=== PATIENT | male | born 1980 | race Hispanic/Latino ===

== ENCOUNTER 2021-06-08 12:31 | Outpatient (CLI) | payer OTHER | END 2021-06-08 12:32 | disposition home or self-care (01) | LOC: NAV RAD 12:31 | PROVIDERS: ATTEND Nurse Practitioner Family | DX: U07.1 COVID-19 (principal); J12.82 Pneumonia due to coronavirus disease 2019 | CPT/HCPCS: 71046 ==

== ENCOUNTER 2021-06-09 02:14 | Emergency (ER) | payer OTHER, SELFPAY ==
[2021-06-09] MEDS ORDERED: Aspirin Chewable 81 MG TAB ONE (02:45)
[2021-06-09] MEDS ORDERED: cefTRIAXone\\ROCEPHIN 2 GM VIAL ONE (02:45)
[2021-06-09] MEDS ORDERED: Sodium Chloride 0.9% 250 ML 250 ML ONE (02:45)
[2021-06-09] MEDS ORDERED: methylPREDNISolone Sod Succ/PF 125 MG/2 ML VIAL ONE (02:45)
[2021-06-09] MEDS ORDERED: Sodium Chloride 0.9% 100 ML ONE (02:45)
[2021-06-09] MEDS ORDERED: Azithromycin 500 MG VIAL ONE (02:45)
[2021-06-09 02:59] LABS: #Monocytes 0.4 thou/uL (0.11-0.59); #Neutrophils 8.7 thou/uL (1.40-6.50); %Basophils 0.4 % (0.0-1.0); %Lymphocytes 9.6 % (21.0-51.0); %Monocytes 4.1 % (0.0-10.0); %Neutrophils 85.9 % (42.0-75.0); Hemoglobin 15.2 g/dL (14.0-18.0); Mean Corpuscular Hemoglobin 25.3 pg (27.0-31.0); Mean Corpuscular Volume 81.7 fL (78.0-98.0); Mean Platelet Volume 6.7 fL (7.4-10.4); Platelet Count 193 thou/uL (130-400); RBC Distribution Width 13.5 % (11.5-14.5); White Blood Cell (WBC) Count 10.1 thou/uL (4.8-10.8)
[2021-06-09] MEDS ORDERED: Acetaminophen 500 MG TAB ONE (02:59)
[2021-06-09 03:16] LABS: ALT (SGPT) 93 U/L (8-55); AST (SGOT) 82 U/L (5-34); Albumin 3.9 g/dL (3.5-5.0); Alkaline Phosphatase 56 U/L (40-110); Anion Gap 17 mmol/L (10-20); BUN (Urea Nitrogen) 11 mg/dL (8.9-20.6); Bilirubin, Total 0.7 mg/dL (0.2-1.2); CRP (Inflammatory) 19.76 mg/dL (= or < 0.5); Calc. Creatinine Clearance 0 mL/min (70-130); Calcium 8.5 mg/dL (7.8-10.44); Carbon Dioxide 17 mmol/L (22-29); Chloride 104 mmol/L (98-107); Globulin 4.2 g/dL (2.4-3.5); Glucose 128 mg/dL (70-105); Potassium 3.4 mmol/L (3.5-5.1); Protein, Total 8.1 g/dL (6.0-8.3); Sodium 135 mmol/L (136-145)
[2021-06-09] MEDS ORDERED: Sodium Chloride 0.9% 1,000 ML ONE ×2 (03:41→04:20)
[2021-06-09] MEDS ORDERED: Ibuprofen 800 MG TAB ONE (04:59)
[2021-06-09 06:35] LABS: Bilirubin Negative (Negative); Blood, Urine Small (Negative); Clarity Clear (Clear); Glucose, Urine (Dipstick) Negative (Negative); Ketone, Urine Trace mg/dL (Negative); Leukocyte Negative (Negative); Nitrite Negative (Negative); Protein, Urine (Dipstick) 100 mg/dL (Neg-Trace); Urobilinogen 0.2 mg/dL (Less than 2); pH, Urine 5.5 (5.0-9.0)
[2021-06-09 06:38] LABS: RBC/HPF 0-3 HPF (0-3); Squamous Epithelial 0-3 HPF (0-3); WBC/HPF 0-3 HPF (0-3)
[2021-06-09 06:39] LABS: Bacteria/HPF None Seen HPF (None Seen)
[2021-06-09] MEDS ORDERED: Enoxaparin Sodium 40 MG/0.4 ML SYRINGE ONE (06:39)
== END 2021-06-09 07:23 | disposition home or self-care (01) ==
LOC: NAV ERS 02:14
DX: U07.1 COVID-19 (principal); J12.82 Pneumonia due to coronavirus disease 2019
CPT/HCPCS: 36415; 71045; 80053; 81003; 81015; 82550; 83605; 84484; 85025; 86140; 87040; 94760; 96365; 96367; 96372; 96375; J0456; J0696; J1650; J2930; J3490; J7050